=== PATIENT | female | born 1945 | race Caucasian/White ===

== ENCOUNTER 2022-09-08 10:41 | Emergency (ER) | payer OTHER, SELFPAY ==
--- NOTE | 2022-09-08 10:46 | ED.SKABFB ---
HPI - Skin/Abscess/Foreign Bdy General Chief complaint: Extremity Problem,Nontraumatic Stated complaint: Growth on right palm Time Seen by Provider: 09/08/22 10:46 Source: patient and RN notes reviewed History of Present Illness HPI narrative: patient is a 76-year-old female who presents to urgent care with complaints of a growth on the right wrist. Patient states it has been there for the last couple months she does not have a primary care doctor has been evaluated for this cyst. Patient denies any injury to the wrist. States that she takes Aleve for the discomfort. No other acute complaints. No acute distress noted. Patient aware of the plan of care. Some parts of this dictation were generated by voice recognition software and may contain typographical and/or grammatical inaccuracies. Related Data Home Medications Medication Instructions Recorded Confirmed No Home Medications 09/08/22 09/08/22 Allergies Allergy/AdvReac Type Severity Reaction Status Date / Time No Known Allergies Allergy Verified 09/08/22 11:01 Review of Systems Review of Systems: CONSTITUTIONAL: Denies fever, chills, or sweats. EYES: Denies visual changes, redness, or discharge. ENT: Denies rhinorrhea, congestion, sore throat, or otalgia. CARDIOVASCULAR: Denies chest pain, palpitations, or edema. RESPIRATORY: Denies cough or dyspnea. GASTROINTESTINAL: Denies abdominal pain, nausea, vomiting, or diarrhea. GENITOURINARY: Denies dysuria or hematuria. SKIN: Reports of a growth to the right wrist MUSCULOSKELETAL: Denies back pain, joint pain, or myalgia. NEUROLOGIC: Denies headache, numbness, or weakness. All other systems reviewed are negative, except as documented in HPI. PMFSH Comments At the time of my signature, I reviewed and agree with the nursing past medical, surgical, social, and family history. There is no relevant family history pertinent to the patient complaint. Exam Narrative: GENERAL: This is a well-nourished, well-developed patient, in no apparent distress. HEAD: normocephalic, atraumatic. EYES: PERRL. Sclera clear/white. Vision is grossly intact. EARS: External ears normal NOSE: External nose normal with no obvious nasal discharge, nares without redness, no rhinorrhea. THROAT: Mucous membranes moist NECK: Neck supple SKIN: approximately 2 cm firm nodular ganglion cyst noted to the radial aspect of the right wrist with [id number] tenderness.warm, intact with no suspicious lesions or rash, good texture and turgor. NEURO: awake, alert, and oriented to person, place and time. There were no obvious focal neurologic abnormalities. EXTREMITIES: No clubbing, cyanosis, or edema. Range of motion right upper extremity within normal limits without obvious deformity. Positive strong right radial pulse with capillary refill less than 2 seconds. Course Course Level of Care: Express Care Visit Vital Signs Vital signs: Vital Signs Temperature 98.2 F 09/08/22 10:52 Pulse Rate 72 09/08/22 10:52 Respiratory Rate 20 09/08/22 10:52 Blood Pressure 187/84 H 09/08/22 10:52 Pulse Oximetry 100 09/08/22 10:52 Oxygen Delivery Room Air 09/08/22 10:52 Temperature 98.2 F 09/08/22 11:01 Pulse Rate 72 09/08/22 11:01 Respiratory Rate 20 09/08/22 11:01 Blood Pressure 187/84 H 09/08/22 11:01 Pulse Oximetry 100 09/08/22 11:01 Oxygen Delivery Room Air 09/08/22 11:01 reviewed- Patient is informed that they may have pre-hypertension or hypertension based on a blood pressure reading in the department. I recommend the patient call the primary care provider listed on their discharge instructions or a physician of their choice this week to arrange follow-up for further evaluation of possible pre-hypertension or hypertension. MDM - Skin/Abscess/Foreign Bdy MDM Narrative Medical decision making narrative: Explained to the patient that what she has is a ganglion cyst to the right wrist. There is typically n
[2022-09-08 10:52] VITALS: BP 187/84; PULSE 72; RESP 20; TEMP 36.8; O2SAT 100
[2022-09-08 11:01] VITALS: BP 187/84; PULSE 72; RESP 20; TEMP 36.8; O2SAT 100
== END 2022-09-08 11:22 | disposition home or self-care (01) ==
PROVIDERS: Emergency Provider Nurse Practitioner Family; PCP Emergency Medicine
DX: M67.441 Ganglion, right hand (principal); M19.90 Unspecified osteoarthritis, unspecified site
CPT/HCPCS: 99211; G0463